=== PATIENT | female | born 1985 ===

== ENCOUNTER 2018-06-01 18:26 | Emergency (ER) | payer SELFPAY ==
[2018-06-01 18:27] VITALS: BMI 32.5
[2018-06-01 18:36] VITALS: RESP 18; TEMP 98.3
--- NOTE | 2018-06-01 20:30 | ED PDOC ---
Arrival/HPI - General Chief Complaint: Trauma Time Seen by Provider: 06/01/18 18:42 Historian: Patient - History of Present Illness Narrative History of Present Illness (Text): 06/01/18 18:45 32 year old female, whose past medical history includes fibromyalgia, who was brought in to the Emergency department by EMS complaining of elbow, hip, and bilateral knee pain status post falling forward when missing the last step as she was coming down the stairs. Patient notes she was trying to protect her face and landed on her left side, noting left knee pain worse than right knee pain. Patient states she was able to get up and ambulate/has no issue walking. Patient denies any loss of consciousness, fever, chills, chest pain, shortness of breath, nausea, vomiting, diarrhea, urinary symptoms, back pain, neck pain, headache, or any other complaints. Time/Duration: Prior to Arrival Symptom Onset: Sudden Symptom Course: Unchanged Quality: Aching Context: Home Past Medical History - Provider Review Nursing Documentation Reviewed: Yes - Infectious Disease Hx of Infectious Diseases: None - Cardiac Hx Cardiac Disorders: No - Pulmonary Hx Respiratory Disorders: No - Neurological Hx Neurological Disorder: No - HEENT Hx HEENT Disorder: No - Renal Hx Renal Disorder: No - Endocrine/Metabolic Hx Endocrine Disorders: No - Hematological/Oncological Hx Blood Disorders: No - Integumentary Hx Dermatological Disorder: No - Gastrointestinal Hx Gall Bladder Disease: Yes (s/p cholecystectomy) - Genitourinary/Gynecological Hx Genitourinary Disorders: No - Psychiatric Hx Psychophysiologic Disorder: No Hx Substance Use: No - Surgical History Hx Cholecystectomy: Yes - Anesthesia Hx Anesthesia: Yes Hx Anesthesia Reactions: No Hx Malignant Hyperthermia: No Family/Social History - Physician Review Nursing Documentation Reviewed: Yes Family/Social History: No Known Family HX Smoking Status: Never Smoked Hx Alcohol Use: No Hx Substance Use: No Allergies/Home Meds Allergies/Adverse Reactions: Allergies shrimp Allergy (Verified 06/01/18 18:27) SWELLING morphine Adverse Reaction (Verified 06/01/18 18:27) NAUSEA Review of Systems - Physician Review All systems were reviewed & negative as marked: Yes - Review of Systems Constitutional: Normal. absent: Fevers Eyes: Normal ENT: Normal Respiratory: Normal. absent: SOB, Cough Cardiovascular: Normal. absent: Chest Pain Gastrointestinal: Normal. absent: Diarrhea, Nausea, Vomiting Genitourinary Female: Normal Musculoskeletal: Arthralgias (elbow, hip, and bilateral knee pain (left knee hurts more than the right) ). absent: Normal, Back Pain, Neck Pain Skin: Normal Neurological: Normal. absent: Headache, Dizziness, Gait Changes (patient notes she has no trouble ambulating.) Endocrine: Normal Hemo/Lymphatic: Normal Psychiatric: Normal Physical Exam Vital Signs Reviewed: Yes Vital Signs Temp Pulse Resp BP Pulse Ox 06/01/18 21:47 98.3 F 93 H 18 129/82 99 06/01/18 21:46 98.3 F 93 H 18 129/82 99 06/01/18 18:35 98.3 F 91 H 18 139/79 100 Temperature: Afebrile Blood Pressure: Normal Pulse: Tachycardic Respiratory Rate: Normal Appearance: Positive for: Well-Appearing, Non-Toxic Pain Distress: Mild Mental Status: Positive for: Alert and Oriented X 3 - Systems Exam Head: Present: Atraumatic (non traumatic face.), Normocephalic Pupils: Present: PERRL Extroacular Muscles: Present: EOMI Conjunctiva: Present: Normal Mouth: Present: Moist Mucous Membranes Neck: Present: Normal Range of Motion Respiratory/Chest: Present: Clear to Auscultation, Good Air Exchange. No: Respiratory Distress, Accessory Muscle Use Cardiovascular: Present: Regular Rate and Rhythm, Normal S1, S2. No: Murmurs Abdomen: No: Tenderness, Distention, Peritoneal Signs Back: Present: Normal Inspection. No: Midline Tenderness, Paraspinal Tenderness Upper Extremity: Present: Normal ROM, Tenderness (tenderness on left elbow. ). No: Normal Inspection, Cyanosis, Edema Lower Extremity: Present: Tenderness (tenderness on left hip, worse with movement. Difficulty moving hip. ), Other (Difficulty moving both knees, left knee pain worse than right knee pain. tender. ). No: Normal Inspection, Edema Neurological: Present: GCS=15, CN II-XII Intact, Speech Normal Skin: Present: Warm, Dry, Normal Color. No: Rashes Psychiatric: Present: Alert, Oriented x 3, Normal Insight, Normal Concentration Medical Decision Making ED Course and Treatment: 06/01/18 18:45 Impression: 32 year old female presents to the Emergency department complaining of elbow, hip, and bilateral knee pain status post falling forward when missing the last step when coming down the stairs. Differential Diagnosis included but are not limited to: r/o hip, elbow and knee fracture. Plan: -- Toradol 30mg IM -- Valium 5mg PO -- X-Ray of left elbow, 3 views -- X-Ray of hip min 2V w/ Pelvis LT -- X-Ray of bilateral knees -- Reassess and disposition Prior Visits: Notes and results from previous visits were reviewed. Progress Notes: Left elbow X-Ray: no acute fracture. No gross findings. Left hip X-Ray: No acute fracture. X-Ray of bilateral knees: no fracture. - RAD Interpretation Radiology Orders: 06/01/18 18:48 ELBOW LEFT 3 VIEWS ROUTINE [RAD] Stat HIP MIN 2V W/ PELVIS LT [RAD] Stat KNEES BILATERAL [RAD] Stat Recovery Coordinator: ED Physician - Medication Orders Current Medication Orders: Discontinued Medications Diazepam (Valium) 5 mg PO ONCE ONE PRN Reason: Protocol Stop: 06/01/18 18:52 Last Admin: 06/01/18 20:00 Dose: 5 mg Ketorolac Tromethamine (Toradol) 30 mg IM STAT STA Stop: 06/01/18 18:51 Last Admin: 06/01/18 19:59 Dose: 30 mg MAR Pain Assessment Document 06/01/18 19:59 SF (Rec: 06/01/18 19:[address] [facility] [id number]) Pain Reassessment Is this a pain reassessment? Yes Sleep Is patient sleeping during reassessment? No Presence of Pain Presence of Pain Yes IM Administration Charges Document 06/01/18 19:59 SF (Rec: 06/01/18 19:[address] [facility] [id number]) Injection Site MAR Injection Site Left Deltoid Charges for Administration # of IM Administrations 1 - Scribe Statement The provider has reviewed the documentation as recorded by the Scribe Barbara Trejo All medical record entries made by the Scribe were at my direction and personally dictated by me. I have reviewed the chart and agree that the record accurately reflects my personal performance of the history, physical exam, medical decision making, and the department course for this patient. I have also personally directed, reviewed, and agree with the discharge instructions and disposition. Disposition/Present on Arrival - Present on Arrival Any Indicators Present on Arrival: No History of DVT/PE: No History of Uncontrolled Diabetes: No Urinary Catheter: No History of Decub. Ulcer: No History Surgical Site Infection Following: None - Disposition Have Diagnosis and Disposition been Completed?: Yes Diagnosis: Contusion Disposition: HOSPITALIZED Disposition Time: 21:47 Condition: GOOD Discharge Instructions (ExitCare): Contusion (DC) Prescriptions: Cyclobenzaprine [Cyclobenzaprine HCl] 10 mg PO Q8 #15 tab Ibuprofen [Motrin] 600 mg PO Q6 #20 tab Referrals: [facility] at [facility] [Outside] - Follow up with primary [facility] at [facility] [Outside] - Follow up with primary [facility] at [place] [Outside] - Follow up with primary PCP,NO [Primary Care Provider] - Follow up with primary Forms: [employer] (Latvian)
[2018-06-01 21:47] VITALS: BP 129/82; PULSE 93; O2SAT 99
--- NOTE | 2018-06-02 14:11 | RAD ---
Date of service: 06/01/2018 PROCEDURE: Bilateral Knee Radiographs. HISTORY: s/pfall COMPARISON: None. FINDINGS: BONES: Right Knee: Normal. No fracture. Left Knee: Normal. No fracture. JOINTS: Right Knee: Normal. No osteoarthritis. Left knee: Normal. No osteoarthritis. SOFT TISSUES: Right Knee: Normal. Left Knee: Normal. JOINT EFFUSION: Right Knee: None. Left Knee: None. OTHER FINDINGS: None. IMPRESSION: Normal radiographs of the knees.
--- NOTE | 2018-06-02 14:12 | RAD ---
Date of service: 06/01/2018 PROCEDURE: Radiographs of the left elbow. HISTORY: s/p fall COMPARISON: No prior. FINDINGS: BONES: Normal. No fracture. JOINTS: Normal. No osteoarthritis. SOFT TISSUES: Normal. JOINT EFFUSION: None. OTHER FINDINGS: None IMPRESSION: Unremarkable radiographs of the left elbow.
--- NOTE | 2018-06-02 14:12 | RAD ---
PROCEDURE: Left Hip and pelvis X-ray Radiographs. HISTORY: s/p fall COMPARISON: None. FINDINGS: BONES: Normal. No fracture. JOINTS: Normal. SOFT TISSUES: Normal. OTHER FINDINGS: None. IMPRESSION: Normal left hip radiographs.
== END 2018-06-01 21:47 | disposition home or self-care (01) ==
LOC: ED 18:26
DX: T14.8XXA Other injury of unspecified body region, initial encounter (principal); W10.9XXA Fall (on) (from) unspecified stairs and steps, initial encounter; Y92.9 Unspecified place or not applicable
CPT/HCPCS: 73080; 73502; 73560; 96372; 99284; J1885